=== PATIENT | male | born 2005 | race Caucasian/White ===

== ENCOUNTER 2025-08-09 09:40 | Inpatient (IN) | payer OTHER ==
[~2025-08-09] VITALS: Ht 177.8 cm; Wt 93.0 kg
[~2025-08-09 09:40] MED LIST: FIDAXOMICIN 200 MG TAB PO SCH
[2025-08-09 11:09] LABS: BASO # 0.1 10^3/uL (0.0-0.2); BASO % 0.4 % (0.0-1.0); EOS # 0.3 10^3/uL (0.0-0.5); EOS % 2.8 % (0.0-3.0); LYMPH # 2.2 10^3/uL (1.5-5.0); LYMPH % 17.5 % (24.0-44.0); MONO # 1.1 10^3/uL (0.0-0.8); MONO % 9.1 % (2.0-8.0); NEUTROPHILS # 8.6 10^3/uL (1.5-8.5); NEUTROPHILS % 70.0 % (36.0-66.0); PLATELET COUNT, AUTOMATED 286 10^3/uL (150-450)
[2025-08-09 11:35] LABS: ALT/SGPT 25 U/L (7.0-40); AST/SGOT 31 U/L (<34); CALCIUM LEVEL 9.0 MG/DL (8.5-10.1); CARBON DIOXIDE LEVEL 28 MMOL/L (20-31); CHLORIDE LEVEL 104 MMOL/L (98-107); CREATININE FOR GFR 0.91 MG/DL (0.70-1.30); GLOMERULAR FILTRATION RATE > 90.0 (>60); POTASSIUM SERUM 4.3 MMOL/L (3.5-5.1); SODIUM LEVEL 140 MMOL/L (136-145)
[2025-08-09] MEDS ORDERED: ISOVUE-370 76% 100 ML VIAL As Ordered ONE (11:45)
[2025-08-09 11:58] LABS: KETONE, URINE AUTO RFX 1+ mg/dL (NEGATIVE); LEUKOCYTE ESTERASE UR AUTO RFX NEGATIVE (NEGATIVE); MUCUS, URINE RFX SMALL (NEGATIVE); NITRITE, URINE AUTO RFX NEGATIVE (NEGATIVE); RBC, URINE AUTO RFX 0 /HPF (0-3); SQUAM EPITHELIAL CELL UR AURFX 0 /HPF (0-6); WBC, URINE AUTO RFX 0 /HPF (0-3)
[2025-08-09] MEDS: NS (Normal Saline) 0.9% 1,000 ML IV ONE (12:01)
[2025-08-09] MEDS: ONDANSETRON 4MG/2ML VIAL IV ONE (12:01)
[2025-08-09] MEDS ORDERED: HOME MED LIST COMPLETE! XX SCH (14:10)
[2025-08-09] MEDS ORDERED: ACETAMINOPHEN 325 MG TAB PO PRN (14:15)
[2025-08-09] MEDS ORDERED: ONDANSETRON 4MG/2ML VIAL IV PRN (14:15)
[2025-08-09] MEDS: ENOXAPARIN 40 MG/0.4 ML SYRINGE (J1650 PER 10MG) SC SCH (14:43)
[2025-08-09 14:50] LABS: MAGNESIUM LEVEL 1.8 MG/DL (1.8-2.4)
[2025-08-09] MEDS: LR 1,000 ML IV SCH (15:07)
[2025-08-09] MEDS: AZITHROMYCIN 250 MG TABLET PO ONE (15:07)
[2025-08-09 21:57] VITALS: BP 108/58; TEMP 98.7; O2SAT 97
[2025-08-09 22:33] VITALS: BP 108/58; TEMP 98.7; O2SAT 97
[2025-08-10 05:53] VITALS: BP 108/51; TEMP 98.2; O2SAT 98
[2025-08-10 06:56] VITALS: BP_SYST 103; BP_SYST 109; BP_SYST 114; BP_DIAS 55; BP_DIAS 58; BP_DIAS 64
[2025-08-10 07:17] LABS: BASO # 0.0 10^3/uL (0.0-0.2); BASO % 0.4 % (0.0-1.0); EOS # 0.4 10^3/uL (0.0-0.5); EOS % 5.4 % (0.0-3.0); LYMPH # 2.4 10^3/uL (1.5-5.0); LYMPH % 29.8 % (24.0-44.0); MONO # 0.9 10^3/uL (0.0-0.8); MONO % 11.0 % (2.0-8.0); NEUTROPHILS # 4.3 10^3/uL (1.5-8.5); NEUTROPHILS % 53.2 % (36.0-66.0); PLATELET COUNT, AUTOMATED 235 10^3/uL (150-450)
[2025-08-10 07:32] LABS: ALT/SGPT 16 U/L (7.0-40); AST/SGOT 16 U/L (<34); CALCIUM LEVEL 8.2 MG/DL (8.5-10.1); CARBON DIOXIDE LEVEL 26 MMOL/L (20-31); CHLORIDE LEVEL 108 MMOL/L (98-107); CREATININE FOR GFR 0.89 MG/DL (0.70-1.30); GLOMERULAR FILTRATION RATE > 90.0 (>60); MAGNESIUM LEVEL 1.6 MG/DL (1.8-2.4); POTASSIUM SERUM 4.3 MMOL/L (3.5-5.1); SODIUM LEVEL 143 MMOL/L (136-145)
[2025-08-10] MEDS: MAG SULF 1GM/100ML (MAG RUN) 1 GM in IV 1 EA IV SCH (08:00)
[2025-08-10] MEDS ORDERED: LOPERAMIDE 2 MG CAPLET PO PRN (08:30)
[2025-08-10] MEDS: AZITHROMYCIN 250 MG TABLET PO SCH (08:59)
[2025-08-10] MEDS: LOPERAMIDE 2 MG CAPLET PO SCH (09:56)
[2025-08-10] MEDS ORDERED: AZIT-12 PO (12:58)
[2025-08-10] MEDS ORDERED: LOPE2CAP PO (13:00)
[2025-08-10] MEDS: NICOTINE 21 MG/24 HR 1 EA TRANSDERMAL TD PRN (14:26)
[2025-08-10 15:14] VITALS: BP 105/53; TEMP 98.7; O2SAT 98
[2025-08-10 20:02] VITALS: BP 125/59; TEMP 98.5; O2SAT 100
[2025-08-11 05:31] VITALS: BP 92/50; TEMP 98.4; O2SAT 100
[2025-08-11] MEDS ORDERED: HOME MED LIST COMPLETE! XX SCH (06:00)
[2025-08-11 07:17] LABS: BASO # 0.0 10^3/uL (0.0-0.2); BASO % 0.5 % (0.0-1.0); EOS # 0.6 10^3/uL (0.0-0.5); EOS % 7.7 % (0.0-3.0); LYMPH # 2.5 10^3/uL (1.5-5.0); LYMPH % 31.6 % (24.0-44.0); MONO # 0.7 10^3/uL (0.0-0.8); MONO % 9.3 % (2.0-8.0); NEUTROPHILS # 4.0 10^3/uL (1.5-8.5); NEUTROPHILS % 50.6 % (36.0-66.0); PLATELET COUNT, AUTOMATED 243 10^3/uL (150-450)
[2025-08-11 07:51] LABS: ALT/SGPT 15 U/L (7.0-40); AST/SGOT 13 U/L (<34); CALCIUM LEVEL 8.8 MG/DL (8.5-10.1); CARBON DIOXIDE LEVEL 31 MMOL/L (20-31); CHLORIDE LEVEL 105 MMOL/L (98-107); CREATININE FOR GFR 0.89 MG/DL (0.70-1.30); GLOMERULAR FILTRATION RATE > 90.0 (>60); MAGNESIUM LEVEL 1.8 MG/DL (1.8-2.4); POTASSIUM SERUM 4.6 MMOL/L (3.5-5.1); SODIUM LEVEL 142 MMOL/L (136-145)
== END 2025-08-11 10:48 | disposition home or self-care (01) | DRG 373 ==
LOC: M ED 09:40 → M ED INP 09:41 → OBSVTOIN 14:46 → M MS5PR 21:48
PROVIDERS: ADMIT Internal Medicine; ATTEND Internal Medicine
DX: A04.72 Enterocolitis due to Clostridium difficile, not specified as recurrent (principal); E83.42 Hypomagnesemia